=== PATIENT | female | born 1965 | race Caucasian/White ===

== ENCOUNTER → 2020-09-26 | Outpatient (CLI) | payer OTHER ==
--- NOTE | 2020-09-30 00:06 | ECWPNPC ---
PATIENT NAME: RALPH PEREZ : 1965 GENDER: FEMALE VISIT DATE: 09/26/2020 DISCHARGE DATE: 09/26/20 1438 VISIT LOCKED DATE TIME: PHYSICIAN: APRIL ONOFRE RESOURCE: APRIL ONOFRE REASON FOR APPOINTMENT 1. CHRONIC PAIN/LUMBAGO WITH SCIATICA HISTORY OF PRESENT ILLNESS DEPRESSION SCREENING: PHQ-9 LITTLE INTEREST OR PLEASURE IN DOING THINGSNEARLY EVERY DAY FEELING DOWN, DEPRESSED, OR HOPELESSNEARLY EVERY DAY TROUBLE FALLING OR STAYING ASLEEP, OR SLEEPING TOO MUCHNOT AT ALL FEELING TIRED OR HAVING LITTLE ENERGYNOT AT ALL POOR APPETITE OR OVEREATING NEARLY EVERY DAY FEELING BAD ABOUT YOURSELF-OR THAT YOU ARE A FAILURE OR HAVE LET YOURSELF OR YOUR FAMILY DOWN NEARLY EVERY DAY TROUBLE CONCENTRATING ON THINGS, SUCH READING THE NEWSPAPER OR WATCHING TELEVISION SEVERAL DAYS MOVING OR SPEAKING SO SLOWLY THAT OTHER PEOPLE COULD HAVE NOTICED. OR THE OPPOSITE- BEING SO FIDGETY OR RESTLESS THAT YOU HAVE BEEN MOVING AROUND A LOT MORE THAN USUALNOT AT ALL THOUGHTS THAT YOU WOULD BE BETTER OFF , OR OF HURTING YOURSELF IN SOME WAY?NEARLY EVERY DAY(CONSIDER SUICIDE ASSESSMENT RISK) TOTAL SCORE:16 INTERPRETATIONMODERATELY SEVERE DEPRESSION PHQ-2 (2015 EDITION) LITTLE INTEREST OR PLEASURE IN DOING THINGS?NEARLY EVERY DAY FEELING DOWN, DEPRESSED, OR HOPELESS?NEARLY EVERY DAY TOTAL SCORE6 55-YEAR-OLD FEMALE IN FOR INITIAL PAIN CONSULT REGARDING LOW BACK PAIN AND RADICULOPATHY. PATIENT STATES THE PAIN HAS BEEN PRESENT FOR SEVERAL YEARS SHE WAS DIAGNOSED WITH DEGENERATIVE DISC DISEASE AT AN EARLY AGE. PATIENT HAS BEEN ON PERCOCET 10/325 MG 4 TIMES A DAY WITH GOOD RESULTS IN THE PAST. SHE DOES ADMIT THAT HER CURRENT PRESCRIBER HAS REDUCED HER TO 7.5/325 AND SINCE THAT TIME SHE HAS HAD A DECREASE IN HER QUALITY OF LIFE SHE IS NOT ABLE TO DO THE THINGS THAT SHE COULD ON THE HIGHER DOSAGE. GENERAL: - - -. FALL RISK SCREENING: SCREENING ONE FALL REPORTED IN THE LAST YEAR WITHOUT INJURY.. PAIN SCREENING: PATIENT HAS A COMPLAINT OF ACUTE OR CHRONIC PAIN :YES LOCATION OF PAIN:NECK, UPPER BACK, MID BACK, LOW BACK INTENSITY OF PAIN (SCALE OF 1 TO 10):4 WHAT DOES YOUR PAIN FEEL LIKE:OTHER DULL PAIN DURATION:CONTINOUS, CONSTANT PAIN IS INCREASED BY:ACTIVITIES, PROLONGED STANDING PAIN IS DECREASED BY:USE OF PAIN MEDICATIONS, SITTING LYRICA AND TRAMADOL INJECTIONS NURSING NOTE: - - -. PAIN CENTER INTAKE QUESTIONS: DO YOU HAVE A HISTORY OF MRSA? :NO DO YOU TAKE A BLOOD THINNERS? :YES PLAVIQ DO YOU HAVE ANY BLEEDING DISORDERS? :NO ANY NEW NUMBNESS OR WEAKNESS IN YOUR LEGS OR ARMS? :YES LOW LEG NUMBNESS ANY PACEMAKER,DEFIBRILLATOR, OR DORSAL COLUMN STIMULATOR? :NO DO YOU HAVE ANY RASHES OR OPEN SORES? :NO ARE YOU ALLERGIC TO IV DYE? :NO ARE YOU DIABETIC? :YES TYPE II ANY NEW PROBLEMS WITH YOUR MEDICATIONS? :NO DO YOU PLAN TO RECEIVE A VACCINE IN THE NEXT 21 DAYS? :YES IF SO WHAT VACCINE AND WHEN? PLANS TO RECEIVE THE VACCINATION WHEN IT BECOMES AVAILABLE. DO YOU NEED ANY PRESCRIPTION? :NO DO YOU TAKE ANY IMMUNOSUPPRESSIVE MEDICATIONS? :NO CURRENT MEDICATIONS TAKING LYRICA 150 MG CAPSULE 1 CAPSULE ORALLY TID TAKING SIMVASTATIN 20 MG TABLET 1 TABLET IN THE EVENING ORALLY ONCE A DAY TAKING ROPINIROLE HCL 1 MG TABLET 1 TABLET 1 TO 3 HOURS BEFORE BEDTIME ORALLY ONCE A DAY TAKING FENOFIBRATE MICRONIZED 200 MG CAPSULE 1 CAPSULE WITH A MEAL ORALLY ONCE A DAY TAKING PERCOCET 7.5-325 MG TABLET 1 TABLET NEEDED ORALLY EVERY 6 HRS TAKING BLOOD GLUCOSE TEST - STRIP DIRECTED IN VITRO TAKING INVOKANA 300 MG TABLET 1 TABLET BEFORE THE FIRST MEAL OF THE DAY ORALLY ONCE A DAY TAKING PANTOPRAZOLE SODIUM 40 MG TABLET DELAYED RELEASE 1 TABLET ORALLY ONCE A DAY TAKING METFORMIN HCL 500 MG TABLET 2 TABLET WITH A MEAL ORALLY ONCE A DAY IN THE EVENING TAKING CETIRIZINE HCL 10 MG TABLET 1 TABLET ORALLY ONCE A DAY TAKING VERAPAMIL HCL 80 MG TABLET 1 TABLET ORALLY THREE TIMES A DAY TAKING PLAVIX 75 MG TABLET 1 TABLET ORALLY ONCE A DAY TAKING ASPIRIN 81 MG TABLET CHEWABLE 1 TABLET ORALLY ONCE A DAY TAKING TAGAMET HB 200 MG TABLET 1 TABLET AT BEDTIME ORALLY BID TAKING CYMBALTA 20 MG CAPSULE DELAYED RELEASE PARTICLES 1 CAPSULE ORALLY TWICE A DAY NOT-TAKING LEXAPRO 20 MG TABLET 1 TABLET ORALLY ONCE A DAY MEDICATION LIST REVIEWED AND RECONCILED WITH THE PATIENT PAST MEDICAL HISTORY HIGH CHOLESTEROL HYPERTENSION CARPAL TUNNEL DEGENERATIVE DISEASE LUMBOSACRAL SPINE DM TYPE 2 ARTHRITIS SIATICA HEART ATTACK DIABETIC NEUROPATHY PVD GERD TOBACCO ABUSE POLYCYTHEMIA MAJOR DEPRESSIVE DISORDER ALLERGIES SULFACET-R: ALLERGY PENICILLIN G SODIUM: SWELLING - ALLERGY SURGICAL HISTORY PARTIAL TOE AMPUTATION 2013 LEFT TO RIGHT FEMORAL BYPASS 2012 TUBAL LIGATION 1998 GALLBLADDER REMOVAL 1995 TNA 1973 FAMILY HISTORY FATHER: - DM, HTN, STROKEMOTHER: , KIDNEY DISEASE, HEART DISEASE. SOCIAL HISTORY GENERAL: TOBACCO USE ARE YOU A:CURRENT SMOKER LATEX QUESTIONNAIRE LATEX ALLERGY : HAVE YOU EVER DEVELOPED ANY TYPE OF REACTION AFTER HANDLING LATEX PRODUCTS SUCH RUBBER GLOVES, CONDOMS, DIAPHRAGMS, BALLOONS, SOCKS, OR UNDERWEAR?NO LATEX ALLERGY : HAVE YOU EVER DEVELOPED ANY TYPE OF REACTION DURING OR AFTER DENTAL APPOINTMENT, VAGINAL/RECTAL EXAMINATION, SURGICAL PROCEDURE, OR ANY OTHER EXPOSURE?NO LATEX RISK : HAVE YOU EVER HAD ANY DIFFICULTY BREATHING OR HIVES AFTER EATING OR HANDLING ANY FRUITS, OR VEGETABLES; SUCH KIWI, BANANAS, STONE FRUITS, OR CHESTNUTSNO LATEX RISK : DO YOU HAVE A PREVIOUS PERSONAL HISTORY OF MORE THAN NINE SURGERIES, SPINA BIFIDA, OR REPEATED CATHERIZATIONS? NO LATEX RISK : ARE YOU FREQUENTLY EXPOSED TO LATEX PRODUCTS IN YOUR OCCUPATION?NO DATE ASKED : 09/26/2020 ALCOHOL USE: NO. RECREATIONAL DRUG USE DRUG USE?NO CAFFEINE CAFFEINE USE?YES HOW OFTEN AND HOW MUCH? 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 CHILLS NO . WEIGHT CHANGE OF UNKNOWN REASONS NO . MUSCULOSKELETAL: ANY UNUSUAL JOINT PAIN OR SWELLING NOT MENTIONED NO . SYSTEMIC LUPUS NO . ANY NEUROMUSCULAR DISORDER NOT MENTIONED NO . LYME DISEASE NO . GASTROENTEROLOGY: ANY NEW CHANGE IN BOWEL CONTROL? NO . HISTORY OF LIVER DISORDER NOT MENTIONED NO . HISTORY OF UNUSUAL ABDOMINAL PAIN OR CRAMPING NOT MENTIONED NO . NO CONSTIPATION. GENITOURINARY: ANY NEW CHANGE IN BLADDER CONTROL? NO . ANY RENAL/KIDNEY CONDITON NOT MENTIONED NO . NEUROLOGY: HISTORY OF TBI NOT MENTIONED NO . OTHER NEW NUMBNESS OR PAIN PATTERNS NOT MENTIONED NO . NEW ONSET DIZZINESS OR NEUROLOGICAL CHANGES NOT MENTIONED NO . HISTORY OF SEVERE HEADACHES NOT MENTIONED NO . HISTORY OF STROKE OR NEUROLOGICAL DISORDER NOT MENTIONED NO . CARDIOLOGY: HEART SURGERY NO . CONGESTIVE HEART FAILURE/FLUID OVERLOAD NOT MENTIONED NO . HISTORY OF CHEST PAIN,IRREGULAR HEART BEAT NOT MENTIONED NO . RESPIRATORY: SHORTNESS OF BREATH ON EXERTION, WHEEZES, UNUSUAL COUGH NOT MENTIONED NO . ENDOCRINOLOGY: ADRENAL GLAND OR THYROID DISORDERS NOT MENTIONED NO . UNUSUAL URINATION, DIZZINESS OR LETHARGY NOT MENTIONED NO . VITAL SIGNS WT 185.8 LBS, HT 67.5 IN, BMI 28.67 INDEX, BP 117/61 MM HG, HR 86 /MIN, RR 20 /MIN, TEMP 97.9 F, OXYGEN SAT % 99%, SAFE IN ENV? (Y/N) YES, REVIEWED BY: JANN JUAN MA. EXAMINATION GENERAL EXAMINATION: GENERALNO ACUTE DISTRESS, WELL NOURISHED AND HYDRATED. PSYCHAPPROPRIATE MOOD AND AFFECT . LUNGS:CLEAR TO AUSCULTATION BILATERALLY, NO WHEEZES, RHONCHI, RALES. HEART:NO MURMURS, REGULAR RATE AND RHYTHM. BACK:DENIES POINT TENDERNESS ALONG LUMBAR SPINE, POSITIVE MODIFIED SLR RIGHT SIDE . MUSCULOSKELETAL:NOTABLE WEAKNESS OF THE LOWER EXTREMITIES BILATERALLY . ASSESSMENTS USE OF OPIATES FOR THERAPEUTIC PURPOSES - Z79.891 (PRIMARY) TREATMENT USE OF OPIATES FOR THERAPEUTIC PURPOSES START OXYCODONE-ACETAMINOPHEN TABLET, 10-325 MG, 1 TABLET NEEDED, ORALLY, EVERY 6 HRS, 30 DAYS, 120 REFILL LYRICA CAPSULE, 150 MG, 1 CAPSULE, ORALLY, TID, 30 DAYS, 90 CAPSULE, REFILLS 2 STOP PERCOCET TABLET, 7.5-325 MG, 1 TABLET NEEDED, ORALLY, EVERY 6 HRS LAB: URINE TEST GROUP NIKKI JUAN 09/26/2020 2:33:28 PM > LAST DOSE: LYRICA 09/26/2020; PERCOCET 09/26/2020 PATIENT MEDICATION INVENTORY #1PRESCRIPTON #[id number] OF RX ON BOTTLE08/29/20DRUG AND STRENGTHOXYCODONE-ACETAMINOPHEN 7.5/325FORMULATIONPILLVERIFIED DRUG IDENTITYRP 7.5 [id number] YEE 09/26/2020 2:27:02 PM > PILLS COUNTED AND VERIFIED BY Leonela YEE RN BSN AND Adelso JUAN MA NOTES: 75-YEAR-OLD FEMALE IN FOR INITIAL PAIN CONSULT. GIVEN PRESENTING SYMPTOMS RECOMMEND RESTARTING PATIENT ON PERCOCET 10 FOR/325 MG 4 TIMES A DAY DOSING WITH FOLLOW-UP IN ONE MONTH TO DETERMINE EFFICACY OF TREATMENT. PATIENT HAS EXPRESSED UNDERSTANDING OF AND WAS IN AGREEMENT WITH TREATMENT PLAN. GIVEN TIME TO ASK QUESTIONS AND EXPRESS CONCERNS. , ISTOP REGISTRY REVIEWED AND DEMONSTRATES COMPLLIANCE. (REF # [id number] ). PROCEDURE CODES FA211 ESTABILISHED PATIENT [facility] CHARGE DISPOSITION & COMMUNICATION FOLLOW UP 4 WEEKS (REASON: MEDICATION ) ELECTRONICALLY SIGNED BY GIOVANA VÁSQUEZ ON 09/29/2020 AT 09:44 AM EDT DISCLAIMER : THIS IS A VISIT SUMMARY EXTRACTED FROM THE [employer] CHART. IT IS NOT A COPY OF THE [employer] PROGRESS NOTE. ALEXISD
== END ==
LOC: M PAIN 13:00
PROVIDERS: ATTEND Family Medicine
DX: M54.5 Low back pain (principal); E11.40 Type 2 diabetes mellitus with diabetic neuropathy, unspecified; K21.9 Gastro-esophageal reflux disease without esophagitis; F17.200 Nicotine dependence, unspecified, uncomplicated; Z86.59 Personal history of other mental and behavioral disorders; Z88.0 Allergy status to penicillin; Z88.2 Allergy status to sulfonamides; Z79.01 Long term (current) use of anticoagulants; Z79.82 Long term (current) use of aspirin; Z79.84 Long term (current) use of oral hypoglycemic drugs; Z79.899 Other long term (current) drug therapy

== ENCOUNTER → 2020-10-27 | Outpatient (CLI) | payer OTHER ==
--- NOTE | 2020-10-30 02:55 | ECWPNPC ---
PATIENT NAME: RALPH PEREZ : 1965 GENDER: FEMALE VISIT DATE: 10/27/2020 DISCHARGE DATE: 10/27/20 1325 VISIT LOCKED DATE TIME: PHYSICIAN: APRIL ONOFRE RESOURCE: APRIL ONOFRE REASON FOR APPOINTMENT 1. MEDICATION HISTORY OF PRESENT ILLNESS GENERAL: 55-YEAR-OLD FEMALE IN FOR CHRONIC PAIN FOLLOW-UP. AT LAST CLINIC VISIT VISIT PATIENT WAS RESTARTED ON HER MEDICATIONS AND SHE ADMITS TODAY THAT THIS HAS BEEN BENEFICIAL. SHE RATES HER PAIN CURRENTLY AT A 1-3 OUT OF 10. SHE DENIES MED SIDE EFFECTS AT THIS TIME. -. FALL RISK SCREENING: SCREENING : NO FALLS REPORTED IN THE LAST YEAR. PAIN SCREENING: PATIENT HAS A COMPLAINT OF ACUTE OR CHRONIC PAIN :YES LOCATION OF PAIN:LOW BACK, LEG(S) INTENSITY OF PAIN (SCALE OF 1 TO 10):1 PAIN GETS UP TO A 3 WHEN STANDING AND INCREASES WALKING PROGRESSES. LEG PAIN GETS UP TO AN 8. WHAT DOES YOUR PAIN FEEL LIKE:ACHING, CONTINOUS DURATION:CONTINOUS, AWAKENS FROM SLEEP ROLLING OVER HURTS THE PAIN. PAIN IS INCREASED BY:ACTIVITIES, PROLONGED STANDING PAIN IS DECREASED BY:USE OF PAIN MEDICATIONS, SITTING NURSING NOTE: -. PAIN CENTER INTAKE QUESTIONS: DO YOU HAVE A HISTORY OF MRSA? :NO DO YOU TAKE A BLOOD THINNERS? :YES PLAVIQ DO YOU HAVE ANY BLEEDING DISORDERS? :NO ANY NEW NUMBNESS OR WEAKNESS IN YOUR LEGS OR ARMS? :YES LOW LEG NUMBNESS ANY PACEMAKER,DEFIBRILLATOR, OR DORSAL COLUMN STIMULATOR? :NO DO YOU HAVE ANY RASHES OR OPEN SORES? :NO ARE YOU ALLERGIC TO IV DYE? :NO ARE YOU DIABETIC? :YES TYPE II ANY NEW PROBLEMS WITH YOUR MEDICATIONS? :NO DO YOU PLAN TO RECEIVE A VACCINE IN THE NEXT 21 DAYS? :YES IF SO WHAT VACCINE AND WHEN? SECOND COVID SCHEDULED FOR 10/05/2020 DO YOU NEED ANY PRESCRIPTION? :YES WILL DISCUSS WITH PROVIDER DO YOU TAKE ANY IMMUNOSUPPRESSIVE MEDICATIONS? :NO CURRENT MEDICATIONS TAKING SIMVASTATIN 20 MG TABLET 1 TABLET IN THE EVENING ORALLY ONCE A DAY TAKING ROPINIROLE HCL 1 MG TABLET 1 TABLET 1 TO 3 HOURS BEFORE BEDTIME ORALLY ONCE A DAY TAKING FENOFIBRATE MICRONIZED 200 MG CAPSULE 1 CAPSULE WITH A MEAL ORALLY ONCE A DAY TAKING BLOOD GLUCOSE TEST - STRIP DIRECTED IN VITRO TAKING INVOKANA 300 MG TABLET 1 TABLET BEFORE THE FIRST MEAL OF THE DAY ORALLY ONCE A DAY TAKING PANTOPRAZOLE SODIUM 40 MG TABLET DELAYED RELEASE 1 TABLET ORALLY ONCE A DAY TAKING CETIRIZINE HCL 10 MG TABLET 1 TABLET ORALLY ONCE A DAY TAKING VERAPAMIL HCL 80 MG TABLET 1 TABLET ORALLY THREE TIMES A DAY TAKING PLAVIX 75 MG TABLET 1 TABLET ORALLY ONCE A DAY TAKING ASPIRIN 81 MG TABLET CHEWABLE 1 TABLET ORALLY ONCE A DAY TAKING TAGAMET HB 200 MG TABLET 1 TABLET AT BEDTIME ORALLY BID TAKING CYMBALTA 20 MG CAPSULE DELAYED RELEASE PARTICLES 1 CAPSULE ORALLY TWICE A DAY TAKING OXYCODONE-ACETAMINOPHEN 10-325 MG TABLET 1 TABLET NEEDED ORALLY EVERY 6 HRS TAKING LYRICA 150 MG CAPSULE 1 CAPSULE ORALLY TID TAKING GLIPIZIDE 5 MG TABLET 1 TABLET 30 MINUTES BEFORE BREAKFAST ORALLY ONCE A DAY NOT-TAKING METFORMIN HCL 500 MG TABLET 2 TABLET WITH A MEAL ORALLY ONCE A DAY IN THE EVENING NOT-TAKING LEXAPRO 20 MG TABLET 1 TABLET ORALLY ONCE A DAY MEDICATION LIST REVIEWED AND RECONCILED WITH THE PATIENT PAST MEDICAL HISTORY HIGH CHOLESTEROL HYPERTENSION CARPAL TUNNEL DEGENERATIVE DISEASE LUMBOSACRAL SPINE DM TYPE 2 ARTHRITIS SIATICA HEART ATTACK DIABETIC NEUROPATHY PVD GERD TOBACCO ABUSE POLYCYTHEMIA MAJOR DEPRESSIVE DISORDER ALLERGIES SULFACET-R: ALLERGY PENICILLIN G SODIUM: SWELLING - ALLERGY SOCIAL HISTORY GENERAL: TOBACCO USE ARE YOU A:CURRENT SMOKER LATEX QUESTIONNAIRE LATEX ALLERGY : HAVE YOU EVER DEVELOPED ANY TYPE OF REACTION AFTER HANDLING LATEX PRODUCTS SUCH RUBBER GLOVES, CONDOMS, DIAPHRAGMS, BALLOONS, SOCKS, OR UNDERWEAR?NO LATEX ALLERGY : HAVE YOU EVER DEVELOPED ANY TYPE OF REACTION DURING OR AFTER DENTAL APPOINTMENT, VAGINAL/RECTAL EXAMINATION, SURGICAL PROCEDURE, OR ANY OTHER EXPOSURE?NO LATEX RISK : HAVE YOU EVER HAD ANY DIFFICULTY BREATHING OR HIVES AFTER EATING OR HANDLING ANY FRUITS, OR VEGETABLES; SUCH KIWI, BANANAS, STONE FRUITS, OR CHESTNUTSNO LATEX RISK : DO YOU HAVE A PREVIOUS PERSONAL HISTORY OF MORE THAN NINE SURGERIES, SPINA BIFIDA, OR REPEATED CATHERIZATIONS? NO LATEX RISK : ARE YOU FREQUENTLY EXPOSED TO LATEX PRODUCTS IN YOUR OCCUPATION?NO DATE ASKED : 10/27/2020 ALCOHOL USE: NO. RECREATIONAL DRUG USE DRUG USE?YES MARIJUANA ON OCCASION. CAFFEINE CAFFEINE USE?YES HOW OFTEN AND HOW MUCH? 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 CHILLS NO . WEIGHT CHANGE OF UNKNOWN REASONS NO . GASTROENTEROLOGY: NEW UNEXPLAINABLE CHANGES IN BOWEL CONTROL NO . CONSTIPATION NO . GENITOURINARY: ANY NEW CHANGE IN BLADDER CONTROL? NO . NEUROLOGY: NEW ONSET DIZZINESS OR NEUROLOGICAL CHANGES NOT MENTIONED NO . NEW NUMBNESS OR PAIN PATTERNS NOT MENTIONED AND PERTINENT TO TODAY'S VISIT NO . CARDIOLOGY: NEW CHEST PRESSURE NO . PATIENT DENIES NO . RESPIRATORY: UNEXPLAINABLE COUGH NO . NEW SHORTNESS OF BREATH NO . VITAL SIGNS WT 190.6 LBS, HT 67.5 IN, BMI 29.41 INDEX, BP 131/60 MM HG, HR 99 /MIN, RR 20 /MIN, TEMP 97.7 F, OXYGEN SAT % 95%, SAFE IN ENV? (Y/N) YES, NA INITIALS GA 13:06, REVIEWED BY: JANN JUAN MA. EXAMINATION GENERAL EXAMINATION: GENERALNO ACUTE DISTRESS, WELL NOURISHED AND HYDRATED. PSYCHAPPROPRIATE MOOD AND AFFECT . LUNGS:CLEAR TO AUSCULTATION BILATERALLY, NO WHEEZES, RHONCHI, RALES. HEART:NO MURMURS, REGULAR RATE AND RHYTHM. ASSESSMENTS LOW BACK PAIN - M54.5 (PRIMARY) TREATMENT LOW BACK PAIN NOTES: 55-YEAR-OLD FEMALE IN FOR CHRONIC PAIN FOLLOW-UP. AT LAST CLINIC VISIT PATIENT'S MEDICATION WAS RESTARTED AND SHE ADMITS TODAY THAT THIS HAS BEEN BENEFICIAL. 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 PATIENT HAS EXPRESSED UNDERSTANDING OF AND WAS IN AGREEMENT WITH TREATMENT PLAN. GIVEN TIME TO ASK QUESTIONS AND EXPRESS CONCERNS. , ISTOP REGISTRY REVIEWED AND DEMONSTRATES COMPLLIANCE. (REF # [id number] ) BRINGS IN MEDICATIONS WHICH IS APPROPRIATE FOR WHAT WAS DISPENSED. RECENT URINE TOXICOLOGY REVIEWED. NO UNAUTHORIZED MEDICATIONS. NO ILLICIT SUBSTANCES AND PRESCRIBED MEDICATIONS WERE PRESENT. PROCEDURE CODES FA211 ESTABILISHED PATIENT [facility] CHARGE DISPOSITION & COMMUNICATION FOLLOW UP 3 MONTHS (REASON: BACK PAIN ) ELECTRONICALLY SIGNED BY GIOVANA VÁSQUEZ ON 10/29/2020 AT 09:37 AM EDT DISCLAIMER : THIS IS A VISIT SUMMARY EXTRACTED FROM THE [employer] CHART. IT IS NOT A COPY OF THE [employer] PROGRESS NOTE. JOSE
== END ==
LOC: M PAIN 14:00
PROVIDERS: ATTEND Family Medicine
DX: M54.5 Low back pain (principal); G89.29 Other chronic pain; E11.9 Type 2 diabetes mellitus without complications; K21.9 Gastro-esophageal reflux disease without esophagitis; F17.200 Nicotine dependence, unspecified, uncomplicated; Z86.59 Personal history of other mental and behavioral disorders; Z88.0 Allergy status to penicillin; Z88.2 Allergy status to sulfonamides; Z79.01 Long term (current) use of anticoagulants; Z79.82 Long term (current) use of aspirin; Z79.84 Long term (current) use of oral hypoglycemic drugs; Z79.899 Other long term (current) drug therapy

== ENCOUNTER → 2021-01-26 | Outpatient (CLI) | payer OTHER ==
--- NOTE | 2021-01-28 01:45 | ECWPNPC ---
PATIENT NAME: RALPH PEREZ : 1965 GENDER: FEMALE VISIT DATE: 01/26/2021 DISCHARGE DATE: 01/26/21 1056 VISIT LOCKED DATE TIME: PHYSICIAN: APRIL ONOFRE RESOURCE: APRIL ONOFRE REASON FOR APPOINTMENT 1. 3 MONTH BACK PAIN HISTORY OF PRESENT ILLNESS GENERAL: HPI 55-YEAR-OLD FEMALE IN FOR CHRONIC PAIN FOLLOW-UP. SHE FEELS HER MEDICATIONS ARE HELPFUL AND DENIES MED SIDE EFFECTS AT THIS TIME. SHE RATES HER PAIN CURRENTLY AT A 2 OUT OF 10 AND DESCRIBES IT ACHING.. -. FALL RISK SCREENING: SCREENING : NO FALLS REPORTED IN THE LAST YEAR. PAIN SCREENING: PATIENT HAS A COMPLAINT OF ACUTE OR CHRONIC PAIN :YES LOCATION OF PAIN:UPPER BACK, MID BACK, LOW BACK INTENSITY OF PAIN (SCALE OF 1 TO 10):2 WHAT DOES YOUR PAIN FEEL LIKE:ACHING DURATION:CONTINOUS, CONSTANT PAIN IS INCREASED BY:ACTIVITIES, PROLONGED STANDING PAIN IS DECREASED BY:USE OF PAIN MEDICATIONS, SITTING, OTHERS REPOSITIONING NURSING NOTE: -. PAIN CENTER INTAKE QUESTIONS: DO YOU HAVE A HISTORY OF MRSA? :NO DO YOU TAKE A BLOOD THINNERS? :YES PLAVIQ DO YOU HAVE ANY BLEEDING DISORDERS? :NO ANY NEW NUMBNESS OR WEAKNESS IN YOUR LEGS OR ARMS? :YES LOW LEG NUMBNESS AND PAIN ANY PACEMAKER,DEFIBRILLATOR, OR DORSAL COLUMN STIMULATOR? :NO DO YOU HAVE ANY RASHES OR OPEN SORES? :YES RIGHT GREAT TOE BLISTER ARE YOU ALLERGIC TO IV DYE? :NO ARE YOU DIABETIC? :YES TYPE II ANY NEW PROBLEMS WITH YOUR MEDICATIONS? :NO DO YOU PLAN TO RECEIVE A VACCINE IN THE NEXT 21 DAYS? :NO DO YOU NEED ANY PRESCRIPTION? :YES LYRICA AND OXYCODONE DO YOU TAKE ANY IMMUNOSUPPRESSIVE MEDICATIONS? :NO CURRENT MEDICATIONS TAKING SIMVASTATIN 20 MG TABLET 1 TABLET IN THE EVENING ORALLY ONCE A DAY TAKING ROPINIROLE HCL 1 MG TABLET 1 TABLET 1 TO 3 HOURS BEFORE BEDTIME ORALLY ONCE A DAY TAKING FENOFIBRATE MICRONIZED 200 MG CAPSULE 1 CAPSULE WITH A MEAL ORALLY ONCE A DAY TAKING BLOOD GLUCOSE TEST - STRIP DIRECTED IN VITRO TAKING INVOKANA 300 MG TABLET 1 TABLET BEFORE THE FIRST MEAL OF THE DAY ORALLY ONCE A DAY TAKING PANTOPRAZOLE SODIUM 40 MG TABLET DELAYED RELEASE 1 TABLET ORALLY ONCE A DAY TAKING CETIRIZINE HCL 10 MG TABLET 1 TABLET ORALLY ONCE A DAY TAKING VERAPAMIL HCL 80 MG TABLET 1 TABLET ORALLY THREE TIMES A DAY TAKING PLAVIX 75 MG TABLET 1 TABLET ORALLY ONCE A DAY TAKING ASPIRIN 81 MG TABLET CHEWABLE 1 TABLET ORALLY ONCE A DAY TAKING TAGAMET HB 200 MG TABLET 1 TABLET AT BEDTIME ORALLY BID TAKING CYMBALTA 20 MG CAPSULE DELAYED RELEASE PARTICLES 1 CAPSULE ORALLY TWICE A DAY TAKING GLIPIZIDE 5 MG TABLET 1 TABLET 30 MINUTES BEFORE BREAKFAST ORALLY ONCE A DAY TAKING LYRICA 150 MG CAPSULE 1 CAPSULE ORALLY TID TAKING OXYCODONE-ACETAMINOPHEN 10-325 MG TABLET 1 TABLET NEEDED ORALLY EVERY 6 HRS NOT-TAKING METFORMIN HCL 500 MG TABLET 2 TABLET WITH A MEAL ORALLY ONCE A DAY IN THE EVENING NOT-TAKING LEXAPRO 20 MG TABLET 1 TABLET ORALLY ONCE A DAY MEDICATION LIST REVIEWED AND RECONCILED WITH THE PATIENT PAST MEDICAL HISTORY HIGH CHOLESTEROL HYPERTENSION CARPAL TUNNEL DEGENERATIVE DISEASE LUMBOSACRAL SPINE DM TYPE 2 ARTHRITIS SIATICA HEART ATTACK DIABETIC NEUROPATHY PVD GERD TOBACCO ABUSE POLYCYTHEMIA MAJOR DEPRESSIVE DISORDER ALLERGIES SULFACET-R: ALLERGY PENICILLIN G SODIUM: SWELLING - ALLERGY SOCIAL HISTORY GENERAL: TOBACCO USE ARE YOU A:CURRENT SMOKER ARE YOU INTERESTED IN QUITTING?NOT READY TO QUIT PATIENT COUNSELED ON THE DANGERS OF TOBACCO USE AND URGED TO QUIT:01/26/2021 LATEX QUESTIONNAIRE LATEX ALLERGY : HAVE YOU EVER DEVELOPED ANY TYPE OF REACTION AFTER HANDLING LATEX PRODUCTS SUCH RUBBER GLOVES, CONDOMS, DIAPHRAGMS, BALLOONS, SOCKS, OR UNDERWEAR?NO LATEX ALLERGY : HAVE YOU EVER DEVELOPED ANY TYPE OF REACTION DURING OR AFTER DENTAL APPOINTMENT, VAGINAL/RECTAL EXAMINATION, SURGICAL PROCEDURE, OR ANY OTHER EXPOSURE?NO LATEX RISK : HAVE YOU EVER HAD ANY DIFFICULTY BREATHING OR HIVES AFTER EATING OR HANDLING ANY FRUITS, OR VEGETABLES; SUCH KIWI, BANANAS, STONE FRUITS, OR CHESTNUTSNO LATEX RISK : DO YOU HAVE A PREVIOUS PERSONAL HISTORY OF MORE THAN NINE SURGERIES, SPINA BIFIDA, OR REPEATED CATHERIZATIONS? NO LATEX RISK : ARE YOU FREQUENTLY EXPOSED TO LATEX PRODUCTS IN YOUR OCCUPATION?NO DATE ASKED : 01/26/2021 ALCOHOL USE: NO. RECREATIONAL DRUG USE DRUG USE?NO CAFFEINE CAFFEINE USE?YES HOW OFTEN AND HOW MUCH? 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 CHILLS NO . WEIGHT CHANGE OF UNKNOWN REASONS NO . GASTROENTEROLOGY: NEW UNEXPLAINABLE CHANGES IN BOWEL CONTROL NO . CONSTIPATION NO . GENITOURINARY: ANY NEW CHANGE IN BLADDER CONTROL? NO . NEUROLOGY: NEW ONSET DIZZINESS OR NEUROLOGICAL CHANGES NOT MENTIONED NO . NEW NUMBNESS OR PAIN PATTERNS NOT MENTIONED AND PERTINENT TO TODAY'S VISIT NO . CARDIOLOGY: NEW CHEST PRESSURE NO . PATIENT DENIES NO . RESPIRATORY: UNEXPLAINABLE COUGH NO . NEW SHORTNESS OF BREATH NO . VITAL SIGNS WT 187.8 LBS, WT-KG 85.19 KG, HT 67.5 IN, BMI 28.98 INDEX, BP 138/65 MM HG, HR 99 /MIN, RR 20 /MIN, TEMP 97.8 F, OXYGEN SAT % 95%, SAFE IN ENV? (Y/N) YES, NA INITIALS DC 10:28, REVIEWED BY: JANN JUAN MA. EXAMINATION GENERAL EXAMINATION: GENERALNO ACUTE DISTRESS, WELL NOURISHED AND HYDRATED. PSYCHAPPROPRIATE MOOD AND AFFECT . LUNGS:CLEAR TO AUSCULTATION BILATERALLY, NO WHEEZES, RHONCHI, RALES. HEART:NO MURMURS, REGULAR RATE AND RHYTHM. ASSESSMENTS LUMBAGO WITH SCIATICA, UNSPECIFIED SIDE - M54.40 (PRIMARY) TREATMENT LUMBAGO WITH SCIATICA, UNSPECIFIED SIDE REFILL LYRICA CAPSULE, 150 MG, 1 CAPSULE, ORALLY, TID, 30 DAYS, 90 CAPSULE, REFILLS 2 REFILL OXYCODONE-ACETAMINOPHEN TABLET, 10-325 MG, 1 TABLET NEEDED, ORALLY, EVERY 6 HRS, 30 DAYS, 120 NOTES: 55-YEAR-OLD FEMALE IN FOR CHRONIC PAIN FOLLOW-UP. GIVEN PRESENTING SYMPTOMS RECOMMEND CONTINUATION OF CURRENT MEDICATION REGIMEN WITH FOLLOW-UP IN 3 MONTHS. PATIENT HAS EXPRESSED UNDERSTANDING OF AND WAS IN AGREEMENT WITH TREATMENT PLAN. GIVEN TIME TO ASK QUESTIONS AND EXPRESS CONCERNS. [employer] REVIEWED AND DEMONSTRATES COMPLLIANCE. (REF # [id number] ) BRINGS IN MEDICATIONS WHICH IS APPROPRIATE FOR WHAT WAS DISPENSED. RECENT URINE TOXICOLOGY REVIEWED. NO UNAUTHORIZED MEDICATIONS. NO ILLICIT SUBSTANCES AND PRESCRIBED MEDICATIONS WERE PRESENT. PROCEDURE CODES [id number] ESTABILISHED PATIENT [facility] FACILITY CHARGE DISPOSITION & COMMUNICATION FOLLOW UP 3 MONTHS (REASON: BACK PAIN) ELECTRONICALLY SIGNED BY GIOVANA VÁSQUEZ ON 01/27/2021 AT 08:35 AM EDT DISCLAIMER : THIS IS A VISIT SUMMARY EXTRACTED FROM THE [facility] CHART. IT IS NOT A COPY OF THE [facility] PROGRESS NOTE. JOSE
== END ==
LOC: M PAIN 10:30
PROVIDERS: ATTEND Family Medicine
DX: M54.40 Lumbago with sciatica, unspecified side (principal); G89.29 Other chronic pain; E11.9 Type 2 diabetes mellitus without complications; K21.9 Gastro-esophageal reflux disease without esophagitis; F17.200 Nicotine dependence, unspecified, uncomplicated; Z86.59 Personal history of other mental and behavioral disorders; Z88.0 Allergy status to penicillin; Z88.2 Allergy status to sulfonamides; Z79.01 Long term (current) use of anticoagulants; Z79.82 Long term (current) use of aspirin; Z79.84 Long term (current) use of oral hypoglycemic drugs; Z79.899 Other long term (current) drug therapy

== ENCOUNTER → 2021-05-13 | Outpatient (CLI) | payer OTHER | LOC: M PAIN 10:00 | PROVIDERS: ATTEND Anesthesiology | DX: M54.40 Lumbago with sciatica, unspecified side (principal); G89.29 Other chronic pain; E11.9 Type 2 diabetes mellitus without complications; K21.9 Gastro-esophageal reflux disease without esophagitis; F17.210 Nicotine dependence, cigarettes, uncomplicated; Z86.59 Personal history of other mental and behavioral disorders; Z88.0 Allergy status to penicillin; Z88.2 Allergy status to sulfonamides; Z79.82 Long term (current) use of aspirin; Z79.899 Other long term (current) drug therapy ==

== ENCOUNTER → 2021-10-19 | Outpatient (CLI) | payer OTHER | LOC: M PAIN 14:45 | PROVIDERS: ATTEND Nurse Practitioner Family | DX: M54.40 Lumbago with sciatica, unspecified side (principal); G89.29 Other chronic pain; E11.40 Type 2 diabetes mellitus with diabetic neuropathy, unspecified; K21.9 Gastro-esophageal reflux disease without esophagitis; F17.210 Nicotine dependence, cigarettes, uncomplicated; Z86.59 Personal history of other mental and behavioral disorders; Z88.0 Allergy status to penicillin; Z88.2 Allergy status to sulfonamides; Z79.01 Long term (current) use of anticoagulants; Z79.82 Long term (current) use of aspirin; Z79.84 Long term (current) use of oral hypoglycemic drugs; Z79.899 Other long term (current) drug therapy ==